=== PATIENT | female | born 1985 | race Caucasian/White ===

== ENCOUNTER 2022-08-09 19:02 | Emergency (ER) | payer MEDICAID, OTHER ==
[~2022-08-09] VITALS: Ht 167.6 cm; Wt 68.0 kg
[2022-08-09 19:05] VITALS: BP 89/17
[2022-08-09] MEDS ORDERED: ALTEPLASE 50MG/VIAL IV NR (19:15)
== END 2022-08-09 23:12 ==
LOC: ER 19:02
DX: I46.9 Cardiac arrest, cause unspecified (principal); I50.9 Heart failure, unspecified; G83.10 Monoplegia of lower limb affecting unspecified side; E11.9 Type 2 diabetes mellitus without complications; Z85.841 Personal history of malignant neoplasm of brain
CPT/HCPCS: 31500; 99291; J2997